=== PATIENT | female | born 1980 | race Caucasian/White ===

== ENCOUNTER 2019-09-12 22:07 | Emergency (ER) | payer OTHER ==
[~2019-09-12] VITALS: Ht 167.6 cm; Wt 54.4 kg
[2019-09-12 22:34] LABS: URINE BILIRUBIN NEGATIVE (Negative); URINE BLOOD NEGATIVE (Negative); URINE CLARITY CLEAR; URINE COLOR STRAW; URINE GLUCOSE-RANDOM NEGATIVE (Negative); URINE KETONES NEGATIVE (Negative); URINE LEUKOCYTES-REFLEX NEGATIVE (Negative); URINE NITRITE-REFLEX NEGATIVE (Negative); URINE PROTEIN NEGATIVE (Negative); URINE SPECIFIC GRAVITY <= 1.005 (1.005-1.030); URINE UROBILINOGEN 0.2 E.U./dl (0.2-1.0)
[2019-09-12 22:42] LABS: AMP/METHAMP Negative (Negative); BARBITURATES Negative (Negative); BENZODIAZEPINES Negative (Negative); COCAINE Negative (Negative); METHADONE Negative (Negative); OPIATES Negative (Negative); PCP Negative (Negative); THC Negative (Negative)
[2019-09-12 22:48] LABS: ABSOLUTE LYMPHOCYTES 1.3 thou/uL (0.8-5.3); ABSOLUTE MONOCYTES 0.4 thou/uL (0.0-1.2); ABSOLUTE NEUTROPHILS 4.6 thou/uL (1.6-8.1); BASOPHILS 0.4 %; EOSINOPHILS 0.8 %; HEMATOCRIT 41.4 % (37.0-47.0); HEMOGLOBIN 14.3 gm/dL (12.0-15.0); LYMPHOCYTES 20.1 %; MCH 33.9 pg (26.0-34.0); MCHC 34.7 g/dL (28.0-37.0); MCV 97.7 fL (80.0-100.0); MONOCYTES 6.6 %; MPV 8.4 fl. (7.2-11.1); NUCLEATED RBCS 0 /100WBC; PLATELET COUNT* 336 thou/uL (150-400); POLYS 72.1 %; RBC 4.23 mil/uL (4.20-5.00); RDW-CV 12.9 % (10.5-14.5); WBC 6.4 thou/uL (4.0-11.0)
[2019-09-12 22:52] LABS: CALCIUM 8.4 mg/dL (8.5-10.1); CREATININE 0.8 mg/dL (0.6-1.3); POTASSIUM 3.5 mmol/L (3.5-5.1)
[2019-09-12 22:57] LABS: ALBUMIN 4.1 g/dL (3.4-5.0); TOTAL BILIRUBIN 0.3 mg/dL (<0.1-1.0); TOTAL PROTEIN 6.7 g/dL (6.4-8.2)
[2019-09-12 23:14] LABS: ALCOHOL 177 mg/dL (<10); SALICYLATE < 2.8 mg/dL (2.8-20.0)
[2019-09-12 23:15] LABS: ACETAMINOPHEN < 2 ug/mL (10-30)
[2019-09-13 20:00] VITALS: BP 146/72
== END 2019-09-13 20:00 ==
LOC: M.ERS 22:07
PROVIDERS: Emergency Medicine Emergency Medical Services
DX: F29 Unspecified psychosis not due to a substance or known physiological condition (principal); F10.129 Alcohol abuse with intoxication, unspecified; Y90.6 Blood alcohol level of 120-199 mg/100 ml; Z20.828 Contact with and (suspected) exposure to other viral communicable diseases